=== PATIENT | female | born 1980 | race Two or more races ===

== ENCOUNTER 2017-06-05 06:08 | Inpatient (IN) | payer BC ==
[~2017-06-05] VITALS: Ht 160 cm; Wt 52.2 kg
[2017-06-05] VITALS (14 sets, daily range): BP systolic 119–131; BP diastolic 65–81
--- NOTE | 2017-06-05 01:46 | History and Physical Report ---
DATE OF ADMISSION: 06/05/2017 PREOPERATIVE DIAGNOSIS: Heavy menses, fibroids, anemia. HISTORY OF PRESENT ILLNESS: The patient has been followed by me since October 2016. She has large fibroids and had the menses with a lot of pain. The patient was considering which type of procedure she wants. We discussed myomectomy, hysterectomy, and ablation. The patient underwent extensive counseling, discussed with her even though they have four kids they are still considering to have future fertility and decision was made to have a myomectomy . PAST MEDICAL HISTORY: Anemia. PAST SURGICAL HISTORY: None. ALLERGIES: None. SOCIAL HISTORY: The patient does not drink or smoke. OB HISTORY: Four vaginal deliveries. She has 2 boys and 2 girls ranging in ages from 4 to 15. PHYSICAL EXAMINATION: GENERAL: Young appearing thin female in no acute distress. VITAL SIGNS: Height 64, weight 112 pounds. Blood pressure 100/60, respiratory rate 18, temperature 97.8, heart rate 72. HEAD AND NECK: Pupils are equal and reactive to light. LUNGS: Clear to auscultation bilaterally. CARDIAC: Regular rate and rhythm. ABDOMEN: Soft, nondistended, nontender. Uterus 16 weeks irregular. Bimanual exam, ovaries not palpable. EXTREMITIES: No cords. No cyanosis. No edema. LABORATORY AND DIAGNOSTIC DATA: Ultrasound performed on 05/15/2017 multiple fibroids, largest submucosal 6 x 6 x 5.4, and another 3.4 x 2.7 x 4.1, and various other fibroids, right ovary not seen, left ovary homogeneous. Blood work, hemoglobin 10.9, hematocrit 35, platelets 307. ASSESSMENT: The patient is a 37-year-old, G4, P4, with 16 week irregular fibroid uterus. PLAN: Myomectomy, hysteroscopy, dilation and curettage. Rosalee Stewart M.D. DR: Melly JOB#: [id number] CC:
[2017-06-05] MEDS ORDERED: NKM (06:48)
[2017-06-05] MEDS ORDERED: cefOXitin Sod 2 GM in D5W 110 ML IVPB ONE (07:00)
[2017-06-05] MEDS ORDERED: cefOXitin 2gm Inj ONE (07:03)
[2017-06-05] MEDS ORDERED: Bupivacaine 0.5% Inj 30 ml vial INJ ONE (07:04)
[2017-06-05] MEDS ORDERED: Ropivacaine 5mg/ml Vial 30ml INJ ONE (07:04)
[2017-06-05] MEDS ORDERED: Midazolam 2mg/2ml Inj ONE (07:30)
[2017-06-05] MEDS ORDERED: Lidocaine 1% MPF 10mg/ml 5ml ONE (07:30)
[2017-06-05] MEDS ORDERED: fentaNYL 100 mcg/2 mL IV ONE (07:30)
[2017-06-05] MEDS ORDERED: Sodium Chloride 10ml vial INJ ONE (07:30)
[2017-06-05] MEDS ORDERED: Metoclopramide 10mg/2ml Inj ONE (07:30)
[2017-06-05] MEDS ORDERED: Propofol 200mg/20ml IV ONE (07:30)
[2017-06-05] MEDS ORDERED: Zemuron 50mg/5ml Inj IV ONE (07:30)
[2017-06-05] MEDS ORDERED: Sterile Water Irrig 1000ml IRRIG ONE (07:30)
[2017-06-05] MEDS ORDERED: LR 1000ml ONE (07:30)
[2017-06-05] MEDS ORDERED: Dexamethasone 4mg/ml vial ONE (07:30)
[2017-06-05] MEDS ORDERED: Ketorolac 30mg Inj ONE (07:30)
[2017-06-05] MEDS ORDERED: NS Irrig 1000ml ONE (07:30)
--- NOTE | 2017-06-05 07:30 | Pre-Procedure Note/Attestation ---
Pre-Procedure Note/Attestation Complete Prior to Procedure Planned Procedure: not applicable Procedure Narrative: myomectomy/ hysteroscopy dilation and curettage Indications for Procedure Pre-Operative Diagnosis: metromenorhagia symptomatic leiomyoma Attestation I attest that I discussed the nature of the procedure; its benefits; risks and complications; and alternatives (and the risks and benefits of such alternatives ), prior to the procedure, with the patient (or the patient's legal account representative). I attest that, if there was a reasonable possibility of needing a blood transfusion, the patient (or the patient's legal account representative) was given the [place] Department of [employer] Services standardized written summary, pursuant to the [place] Blood Safety Act ([place] Health and Safety Code # 1645, as amended). I attest that I re-evaluated the patient just prior to the surgery and that there has been no change in the patient's H&P, except as documented below: RAJEEV KNIGHT Jun 05, 2017 07:30
--- NOTE | 2017-06-05 07:30 | Pre-Procedure Note/Attestation ---
Pre-Procedure Note/Attestation Complete Prior to Procedure Planned Procedure: not applicable Procedure Narrative: myomectomy/ hysteroscopy dilation and curettage Indications for Procedure Pre-Operative Diagnosis: metromenorhagia symptomatic leiomyoma Attestation I attest that I discussed the nature of the procedure; its benefits; risks and complications; and alternatives (and the risks and benefits of such alternatives ), prior to the procedure, with the patient (or the patient's legal circulation representative). I attest that, if there was a reasonable possibility of needing a blood transfusion, the patient (or the patient's legal circulation representative) was given the [place] Department of Health Services standardized written summary, pursuant to the [place] Blood Safety Act ([place] Health and Safety Code # 1645, as amended). I attest that I re-evaluated the patient just prior to the surgery and that there has been no change in the patient's H&P, except as documented below: RAJEEV KNIGHT Jun 05, 2017 07:30
--- NOTE | 2017-06-05 07:30 | Pre-Procedure Note/Attestation ---
Pre-Procedure Note/Attestation Complete Prior to Procedure Planned Procedure: not applicable Procedure Narrative: myomectomy/ hysteroscopy dilation and curettage Indications for Procedure Pre-Operative Diagnosis: metromenorhagia symptomatic leiomyoma Attestation I attest that I discussed the nature of the procedure; its benefits; risks and complications; and alternatives (and the risks and benefits of such alternatives ), prior to the procedure, with the patient (or the patient's legal risk control field representative). I attest that, if there was a reasonable possibility of needing a blood transfusion, the patient (or the patient's legal risk control field representative) was given the [place] Department [facility] Services standardized written summary, pursuant to the [place] Blood Safety Act ([place] Health and Safety Code # 1645, as amended). I attest that I re-evaluated the patient just prior to the surgery and that there has been no change in the patient's H&P, except as documented below: RAJEEV KNIGHT Jun 05, 2017 07:30
--- NOTE | 2017-06-05 07:44 | Anethesia Preoperative Eval ---
Anesthesia Pre-op PMH/ROS General Date of Evaluation: Jun 05, 2017 Anesthesiologist: Reece ASA Score: ASA 2 Mallampati Score Class I : Soft palate, uvula, fauces, pillars visible Class II: Soft palate, uvula, fauces visible Class III: Soft palate, base of uvula visible Class IV: Only hard plate visible Mallampati Classification: Class I Surgeon: Terry Diagnosis: Uterine fibroids Surgical Procedure: D&C hysteeroscopy, open myomectomy Anesthesia History: none Family History: no anesthesia problems Allergies: Coded Allergies: No Known Allergies (Unverified , 06/04/17) Medications: see eMAR Past Medical History Cardiovascular: Denies: HTN, CAD, [place], valve dz, arrhythmia, other Pulmonary: Denies: asthma, COPD, [place], other Gastrointestinal/Genitourinary: Reports: other - fibroids, Denies: GERD, CRI, ESRD Neurologic/Psychiatric: Denies: dementia, CVA, depression/anxiety, TIA, other Endocrine: Denies: DM, hypothyroidism, steroids, other HEENT: Denies: cataract (L), cataract (R), glaucoma, [place] (L), [place] (R), other Hematology/Immune: Reports: anemia - chronic, Denies: DVT, bleeding disorder, other Musculoskeletal/Integumentary: Denies: OA, RA, DJD, DDD, edema, other PSxH Narrative: lap appy Anesthesia Pre-op Phys. Exam Physician Exam Last Vital Signs Date Time Temp Pulse Resp B/P (MAP) Pulse Ox O2 Delivery O2 Flow Rate FiO2 06/05/17 06:50 97.0 81 19 119/65 100 Room Air Constitutional: NAD Cardiovascular: RRR Respiratory: CTA Airway Exam Mallampati Score: Class I MO: full ROM: full Teeth: intact Anesthesia Pre-op A/P Labs see chart Urine Test Test 06/05/17 06:30 Urine HCG, Qualitative Negative Studies Pre-op Studies: EKG - sr Risk Assessment & Plan Assessment: ASA II Plan: GA Status Change Before Surgery: No Pre-Antibiotics Drug: Cefoxitin 2g Given Within 1 Hr of Incision: Yes Time Given: 08:00 SHELLY HUTCHINSON M.D. Jun 05, 2017 07:44
--- NOTE | 2017-06-05 07:44 | Anethesia Preoperative Eval ---
Anesthesia Pre-op PMH/ROS General Date of Evaluation: Jun 05, 2017 Anesthesiologist: Reece ASA Score: ASA 2 Mallampati Score Class I : Soft palate, uvula, fauces, pillars visible Class II: Soft palate, uvula, fauces visible Class III: Soft palate, base of uvula visible Class IV: Only hard plate visible Mallampati Classification: Class I Surgeon: Terry Diagnosis: Uterine fibroids Surgical Procedure: D&C hysteeroscopy, open myomectomy Anesthesia History: none Family History: no anesthesia problems Allergies: Coded Allergies: No Known Allergies (Unverified , 06/04/17) Medications: see eMAR Past Medical History Cardiovascular: Denies: HTN, CAD, [place], valve dz, arrhythmia, other Pulmonary: Denies: asthma, COPD, [place], other Gastrointestinal/Genitourinary: Reports: other - fibroids, Denies: GERD, CRI, ESRD Neurologic/Psychiatric: Denies: dementia, CVA, depression/anxiety, TIA, other Endocrine: Denies: DM, hypothyroidism, steroids, other HEENT: Denies: cataract (L), cataract (R), glaucoma, [place] (L), [place] (R), other Hematology/Immune: Reports: anemia - chronic, Denies: DVT, bleeding disorder, other Musculoskeletal/Integumentary: Denies: OA, RA, DJD, DDD, edema, other PSxH Narrative: lap appy Anesthesia Pre-op Phys. Exam Physician Exam Last Vital Signs Date Time Temp Pulse Resp B/P (MAP) Pulse Ox O2 Delivery O2 Flow Rate FiO2 06/05/17 06:50 97.0 81 19 119/65 100 Room Air Constitutional: NAD Cardiovascular: RRR Respiratory: CTA Airway Exam Mallampati Score: Class I MO: full ROM: full Teeth: intact Anesthesia Pre-op A/P Labs see chart Urine Test Test 06/05/17 06:30 Urine HCG, Qualitative Negative Studies Pre-op Studies: EKG - sr Risk Assessment & Plan Assessment: ASA II Plan: GA Status Change Before Surgery: No Pre-Antibiotics Drug: Cefoxitin 2g Given Within 1 Hr of Incision: Yes Time Given: 08:00 SHELLY HUTCHINSON M.D. Jun 05, 2017 07:44
--- NOTE | 2017-06-05 07:44 | Anethesia Preoperative Eval ---
Anesthesia Pre-op PMH/ROS General Date of Evaluation: Jun 05, 2017 Anesthesiologist: Reece ASA Score: ASA 2 Mallampati Score Class I : Soft palate, uvula, fauces, pillars visible Class II: Soft palate, uvula, fauces visible Class III: Soft palate, base of uvula visible Class IV: Only hard plate visible Mallampati Classification: Class I Surgeon: Terry Diagnosis: Uterine fibroids Surgical Procedure: D&C hysteeroscopy, open myomectomy Anesthesia History: none Family History: no anesthesia problems Allergies: Coded Allergies: No Known Allergies (Unverified , 06/04/17) Medications: see eMAR Past Medical History Cardiovascular: Denies: HTN, CAD, [place], valve dz, arrhythmia, other Pulmonary: Denies: asthma, COPD, [place], other Gastrointestinal/Genitourinary: Reports: other - fibroids, Denies: GERD, CRI, ESRD Neurologic/Psychiatric: Denies: dementia, CVA, depression/anxiety, TIA, other Endocrine: Denies: DM, hypothyroidism, steroids, other HEENT: Denies: cataract (L), cataract (R), glaucoma, [place] (L), [place] (R), other Hematology/Immune: Reports: anemia - chronic, Denies: DVT, bleeding disorder, other Musculoskeletal/Integumentary: Denies: OA, RA, DJD, DDD, edema, other PSxH Narrative: lap appy Anesthesia Pre-op Phys. Exam Physician Exam Last Vital Signs Date Time Temp Pulse Resp B/P (MAP) Pulse Ox O2 Delivery O2 Flow Rate FiO2 06/05/17 06:50 97.0 81 19 119/65 100 Room Air Constitutional: NAD Cardiovascular: RRR Respiratory: CTA Airway Exam Mallampati Score: Class I MO: full ROM: full Teeth: intact Anesthesia Pre-op A/P Labs see chart Urine Test Test 06/05/17 06:30 Urine HCG, Qualitative Negative Studies Pre-op Studies: EKG - sr Risk Assessment & Plan Assessment: ASA II Plan: GA Status Change Before Surgery: No Pre-Antibiotics Drug: Cefoxitin 2g Given Within 1 Hr of Incision: Yes Time Given: 08:00 SHELLY HUTCHINSON M.D. Jun 05, 2017 07:44
[2017-06-05] MEDS ORDERED: LR 1000ml 1,000 ML IVLG SCH (08:07)
[2017-06-05] MEDS ORDERED: Ketorolac 30mg Inj IV PRN ×2 (08:15→13:30)
[2017-06-05] MEDS ORDERED: fentaNYL 100 mcg/2 mL IV PRN (08:15)
[2017-06-05] MEDS ORDERED: Metoclopramide 10mg/2ml Inj IVP PRN (08:15)
[2017-06-05] MEDS ORDERED: Hydromorphone 0.5mg/0.5ml inj IVP PRN (08:15)
[2017-06-05] MEDS ORDERED: Midazolam 2mg/2ml Inj IVP PRN (08:15)
[2017-06-05] MEDS ORDERED: DiphenhydrAMINE 50mg/ml Inj IVP PRN ×2 (08:15→13:30)
[2017-06-05] MEDS ORDERED: Surgicel 4in x 8in TOPIC ONE (09:25)
[2017-06-05] MEDS ORDERED: Interceed TOPIC ONE (09:26)
[2017-06-05 10:17] LABS: HEMATOCRIT 17.8 % (37.0-47.0); HEMOGLOBIN 5.3 G/DL (12.0-16.0); MEAN CORPUSCULAR VOLUME 78 FL (80-99); PLATELET COUNT 156 K/UL (150-450); RED CELL DISTRIBUTION WIDTH 15.2 % (11.6-14.8); WHITE BLOOD COUNT 9.9 K/UL (4.8-10.8)
--- NOTE | 2017-06-05 11:07 | Immediate Post-Op Evaluation ---
Immediate Post-Op Evalulation Immediate Post-Op Evalulation Procedure: D&C hysteroscopy, open myomectomy Date of Evaluation: Jun 05, 2017 Time of Evaluation: 11:06 IV Fluids: 2L Blood Products: 1 unit PRBC, 500ml albumin Estimated Blood Loss: 600 Urinary Output: 450 Blood Pressure Systolic: 126 Blood Pressure Diastolic: 69 Pulse Rate: 87 Respiratory Rate: 16 O2 Sat by Pulse Oximetry: 100 Temperature (Fahrenheit): 98.5 Pain Score (1-10): 0 Nausea: No Vomiting: No Complications 0 Patient Status: awake, reacts, patent, none Hydration Status: adequate Drug: Cefoxitin 2g Given Within 1 Hr of Incision: Yes Time Given: 08:00 SHELLY HUTCHINSON M.D. Jun 05, 2017 11:07
--- NOTE | 2017-06-05 11:08 | Brief Operative Note ---
Immediate Post Operative Note Operative Note Chief Complaint: AUB-L, anemia, pelvic pain Pre-op Diagnosis: Uterine fibroids, anemia Procedure: Abdominal myomectomy, diagnostic hysteroscopy Post-op Diagnosis: Uterine fibroids, anemia Post-op Diagnosis: same as pre-op Findings: consistent w/pre-op dx studies Surgeon: Rosalee Stewart MD Senior Technical Business Analyst: Georgia Hinton MD Anesthesiologist: Shante Cavazos MD Specimen: yes Complications: none Condition: stable Fluids: 3000ml Crystalloid, 500cc Albumin, 1u pRBC Estimated Blood Loss: volume - 600cc Drains: other - [place] Packing: None Implant(s) used?: No Georgia Hinton M.D. Jun 05, 2017 11:08
[2017-06-05] MEDS ORDERED: HYDROmorphone 1mg/ml Carpuject IVP PRN (13:30)
[2017-06-05] MEDS ORDERED: Norco 5mg/325mg tab ORAL PRN (13:30)
[2017-06-05] MEDS ORDERED: ceFAZolin sod 1 GM in D5W 55 ML IV ONE (16:00)
[2017-06-05] MEDS: Docusate 100mg cap ORAL SCH (17:02)
[2017-06-05] MEDS: Norco 10mg/325mg tab ORAL PRN ×2 (18:26→23:06)
[2017-06-06 00:19] VITALS: BP 117/72
[2017-06-06 03:20] VITALS: BP 112/65
[2017-06-06 06:50] LABS: BASOPHILS % (AUTO) 0.4 % (0.0-2.0); EOSINOPHILS % (AUTO) 0.4 % (0.0-3.0); HEMATOCRIT 32.4 % (37.0-47.0); HEMOGLOBIN 10.3 G/DL (12.0-16.0); LYMPHOCYTES % (AUTO) 17.2 % (20.0-45.0); MEAN CORPUSCULAR VOLUME 79 FL (80-99); MONOCYTES % (AUTO) 10.1 % (1.0-10.0); PLATELET COUNT 214 K/UL (150-450); RED BLOOD COUNT 4.12 M/UL (4.20-5.40); RED CELL DISTRIBUTION WIDTH 15.7 % (11.6-14.8); WHITE BLOOD COUNT 12.4 K/UL (4.8-10.8)
[2017-06-06] MEDS: Norco 10mg/325mg tab ORAL PRN ×4 (07:55→22:31)
[2017-06-06 08:00] VITALS: BP 123/71
[2017-06-06] MEDS: Docusate 100mg cap ORAL SCH ×2 (08:33→17:00)
[2017-06-06 12:00] VITALS: BP 110/64
[2017-06-06 16:00] VITALS: BP 125/66
--- NOTE | 2017-06-06 18:46 | General Surgery Progress Note ---
General Surgery-Progress Note Subjective Symptoms: pain same, tolerating diet, voiding well Objective Last 24 Hour Vital Signs Date Time Temp Pulse Resp B/P (MAP) Pulse Ox O2 Delivery O2 Flow Rate FiO2 06/06/17 18:25 98.8 06/06/17 16:00 98.8 84 17 125/66 96 Room Air 06/06/17 12:00 98.2 77 18 110/64 99 Room Air 06/06/17 08:00 98.6 81 18 123/71 99 Room Air 06/06/17 03:20 98.4 81 18 112/65 99 Room Air 06/06/17 00:19 100.0 74 18 117/72 97 Room Air 06/05/17 20:00 97.9 70 17 121/74 98 Room Air I&O Intake and Output 06/06/17 06/07/17 19:00 07:00 Intake Total 1080 ml Balance 1080 ml Intake Oral 1080 ml # Voids 2 Dressing: dry, bloody Wound: clean, dry, intact Drains: none Cardiovascular: RSR Respiratory: clear Abdomen: soft, non-tender, present bowel sounds Extremities: no edema, no tenderness, no cyanosis Laboratory Tests Test 06/06/17 05:10 White Blood Count 12.4 K/UL (4.8-10.8) H Red Blood Count 4.12 M/UL (4.20-5.40) L Hemoglobin 10.3 G/DL (12.0-16.0) #L Hematocrit 32.4 % (37.0-47.0) #L Mean Corpuscular Volume 79 FL (80-99) L Mean Corpuscular Hemoglobin 24.9 PG (27.0-31.0) L Mean Corpuscular Hemoglobin Concent 31.7 G/DL (32.0-36.0) L Red Cell Distribution Width 15.7 % (11.6-14.8) H Platelet Count 214 K/UL (150-450) Mean Platelet Volume 10.0 FL (6.5-10.1) Neutrophils (%) (Auto) 72.0 % (45.0-75.0) Lymphocytes (%) (Auto) 17.2 % (20.0-45.0) L Monocytes (%) (Auto) 10.1 % (1.0-10.0) H Eosinophils (%) (Auto) 0.4 % (0.0-3.0) Basophils (%) (Auto) 0.4 % (0.0-2.0) PREYS,RAJEEV Jun 06, 2017 18:46
[2017-06-06] MEDS: Ketorolac 30mg Inj IV SCH (18:49)
--- NOTE | 2017-06-06 18:50 | Discharge Instructions ---
Discharge Instructions Discharge Instructions Diet: regular Resume Normal Activity?: No Activity: resume normal activities, light activity, ambulate, okay to shower Follow Up Orders f/up one week Return to Work/School on: Jun 06, 2017 For Surgical Patients Clean and Dry: surgical site Dressing Care: keep dry and clean May shower: Yes For Congestive Heart Failure Reminder Report to your physician any weight gain of 5 pounds or more in one week. RAJEEV KNIGHT Jun 06, 2017 18:50
[2017-06-06 19:58] VITALS: BP 124/84
--- NOTE | 2017-06-06 23:30 | Discharge Summary ---
DATE OF ADMISSION: 06/05/2017 PREOPERATIVE DIAGNOSIS: Symptomatic uterine fibroids. POSTOPERATIVE DIAGNOSIS: Symptomatic uterine fibroids. DATE OF ADMISSION: 06/05/2017. DATE OF DISCHARGE: 06/07/2017. SURGERY: Myomectomy and hysteroscopy. ESTIMATED BLOOD LOSS: 600 mL. DISCHARGE CONDITION: The patient was stable on discharge. DISCHARGE MEDICATIONS: She was discharged on ibuprofen and [place]. FOLLOWUP: She is to follow up with me in the office in 1 week. She has strict instructions to come back or call for fever or chills, nausea, vomiting, or increasing pain. Rosalee Stewart M.D. DR: CHARAN JOB#: [id number] CC:
[2017-06-07] VITALS: BP 124/58
[2017-06-07] MEDS: Ketorolac 30mg Inj IV SCH ×2 (00:36→06:45)
[2017-06-07] MEDS: Norco 10mg/325mg tab ORAL PRN ×2 (05:31→10:02)
[2017-06-07 08:00] VITALS: BP 123/60
[2017-06-07] MEDS: Docusate 100mg cap ORAL SCH (08:52)
[2017-06-07] MEDS ORDERED: Tubing IV Secondary IV ONE (09:59)
--- NOTE | 2017-06-10 20:15 | Operative Note - Dictated ---
PREOPERATIVE DIAGNOSIS: Symptomatic uterine fibroids. POSTOPERATIVE DIAGNOSIS: Symptomatic uterine fibroids. PROCEDURE: Myomectomy, hysteroscopy. ANESTHESIA: General endotracheal. SURGEON: Rosalee Stewart M.D. SENIOR QUALITY ASSURANCE ANALYST: Georgia Hinton M.D. ANESTHESIOLOGIST: Dr. Cavazos. ESTIMATED BLOOD LOSS: 600 mL. TRANSFUSION: One unit packed RBCs. PROCEDURE IN DETAIL: After ensuring informed consent, the patient was taken to the operating room where general anesthesia was induced. The patient was sterilely prepped and draped. Weighted speculum was placed in the vagina. Cervix was dilated to an 8 Hegar dilator. Hysteroscope was placed inside the uterine cavity, which appeared normal, although slightly dilated and sounded to 10 cm. Bilateral ostia were seen. Next hysteroscope was withdrawn, a small incision was made suprapubically and carried down to the level of the fascia with the Bovie. The fascia was nicked and fascial incision was extended laterally. Fascia was tented up and both bluntly and sharply dissected off of underlying rectus muscles. Rectus muscles were parted in the midline. Peritoneum was identified and entered sharply. The uterus was enlarged to approximately a 16 weeks size with multiple fibroids. A dilute solution of Pitressin namely 20 units in 50 mL of normal saline was injected into the uterus and incision was made over the fibroid and a couple of fibroids were removed. Then the uterine incision was closed in multiple layers. This was repeated four times. Please note that there was an approximately 8 cm anterior fundal fibroid and approximately an 8 cm right lateral broad ligament fibroid. There were also multiple - at least another five smaller fibroids that were removed. All incision were closed with 0 Vicryl. An excellent hemostasis was assured. Next, pelvis was copiously irrigated. Next, Interceed adhesion prevention barrier was placed over the incisions. Next, peritoneum was closed with 2-0 Vicryl. Muscle was closed with 2-0 Vicryl. Fascia was closed with 0 Vicryl. Subcutaneous tissue was closed with 3-0 plain and skin was closed with 4-0 Monocryl. At the end of the procedure, all instrument and lap counts were correct x3. The patient was taken to the recovery area, extubated, and in stable condition. Rosalee Stewart M.D. DR: DAVID JOB#: [id number] CC: CAMILLA
== END 2017-06-07 10:00 | disposition home or self-care (01) | DRG 743 ==
LOC: SDSOVERFLO 06:08 → 3E 12:43
PROC: 0UB90ZZ Excision of Uterus, Open Approach (ICD-10-PCS; principal; 2017-06-05 07:30)
PROC: 30233N1 Transfusion of Nonautologous Red Blood Cells into Peripheral Vein, Percutaneous Approach (ICD-10-PCS; principal; 2017-06-05 07:30)
DX: D25.0 Submucous leiomyoma of uterus (principal); D64.9 Anemia, unspecified; N92.1 Excessive and frequent menstruation with irregular cycle
CPT/HCPCS: 36415; 81025; 85007; 85025; 86850; 86900; 86901; 86920; 87081; 94003; 94150; J2250; J2405; J2765